=== PATIENT | male | born 1985 | race Caucasian/White ===

== ENCOUNTER 2018-12-22 16:50 | Emergency (ER) | payer OTHER ==
[2018-12-22 16:57] VITALS: BP 149/79
[2018-12-22] MEDS ORDERED: IBUPROFEN 800 MG TABLET PO STA (17:02)
--- NOTE | 2018-12-22 17:10 | ED Physician Documentation ---
History of Present Illness - Stated complaint Stated Complaint: FEVER - Chief complaint Chief Complaint: Fever - History obtained from History obtained from: Patient - History of Present Illness Timing: Yesterday (He got the YELLOW fever vaccine 5 days ago, starting yesterday he felt achy with a little bit of a dry scratchy throat, very mild dry cough. Fevers and body aches. No urinary complaints.) Review of Systems Constitutional: reports: Fever, Chills, Myalgias. denies: Fatigue Nose: denies: Rhinorrhea / runny nose, Congestion Throat: reports: Sore throat Cardiac: denies: Chest pain / pressure, Palpitations Respiratory: denies: Dyspnea, Cough PD PAST MEDICAL HISTORY - Present Medications Home Medications: Ambulatory Orders Medication Instructions Recorded Confirmed No Known Home Medications 12/22/18 12/22/18 - Allergies Allergies/Adverse Reactions: Allergies Allergy/AdvReac Type Severity Reaction Status Date / Time amoxicillin Allergy Hives Verified 12/22/18 16:58 PD ED PE NORMAL - Vitals Vital signs reviewed: Yes - General General: Alert and oriented X 3, No acute distress - HEENT HEENT: PERRL, EOMI, Pharynx benign - Neck Neck: Supple, no meningeal sign, No bony TTP - Cardiac Cardiac: RRR, No murmur - Respiratory Respiratory: No respiratory distress, Clear bilaterally - Abdomen Abdomen: Non tender - Derm Derm: No rash - Neuro Neuro: Alert and oriented X 3, Normal speech Results - Vitals Vitals: Vital Signs - 24 hr 12/22/18 12/22/18 16:54 16:57 Temperature 39.4 C H 39.5 C H Heart Rate 122 H 120 H Respiratory 18 Rate Blood Pressure 149/79 H O2 Saturation 99 Oxygen O2 Source Room air - Labs Labs: Laboratory Tests 12/22/18 12/22/18 12/22/18 17:12 17:12 17:12 WBC 12.4 H RBC 5.23 Hgb 15.2 Hct 45.2 MCV 86.4 MCH 29.1 MCHC 33.6 RDW 11.8 L Plt Count 181 MPV 10.1 Neut # (Auto) Not Reportable Lymph # (Auto) Not Reportable Vigo # (Auto) Not Reportable Eos # (Auto) Not Reportable Baso # (Auto) Not Reportable Absolute Nucleated RBC Not Reportable Total Counted 100 Band Neuts % (Manual) 1 Reactive Lymphs % (Man) 1 Abnorm Lymph % (Manual) 0 Nucleated RBC % Not Reportable Neutrophils # (Manual) 11.3 H Lymphocytes # (Manual) 0.7 L Monocytes # (Manual) 0.4 Eosinophils # (Manual) 0.0 Basophils # (Manual) 0.0 Differential Comment MANUAL DIFFERENTIAL Platelet Estimate NORMAL (130-450,000) Platelet Morphology NORMAL APPEARANCE RBC Morph Micro Appear NORMAL APPEARANCE Sodium 138 Potassium 3.8 Chloride 100 L Carbon Dioxide 26 Anion Gap 12.0 BUN 12 Creatinine 1.1 Estimated GFR (MDRD) 78 L Glucose 117 H Lactic Acid 1.3 Calcium 8.9 Total Bilirubin 2.9 H AST 16 ALT 14 Alkaline Phosphatase 60 Total Protein 7.7 Albumin 4.5 Globulin 3.2 Albumin/Globulin Ratio 1.4 Lipase 27 Influenza A (Rapid) Influenza B (Rapid) Group A Strep Rapid 12/22/18 12/22/18 17:12 17:12 WBC RBC Hgb Hct MCV MCH MCHC RDW Plt Count MPV Neut # (Auto) Lymph # (Auto) [place]igo # (Auto) Eos # (Auto) Baso # (Auto) Absolute Nucleated RBC Total Counted Band Neuts % (Manual) Reactive Lymphs % (Man) Abnorm Lymph % (Manual) Nucleated RBC % Neutrophils # (Manual) Lymphocytes # (Manual) Monocytes # (Manual) Eosinophils # (Manual) Basophils # (Manual) Differential Comment Platelet Estimate Platelet Morphology RBC Morph Micro Appear Sodium Potassium Chloride Carbon Dioxide Anion Gap BUN Creatinine Estimated GFR (MDRD) Glucose Lactic Acid Calcium Total Bilirubin AST ALT Alkaline Phosphatase Total Protein Albumin Globulin Albumin/Globulin Ratio Lipase Influenza A (Rapid) Negative Influenza B (Rapid) Negative Group A Strep Rapid Negative PD MEDICAL DECISION MAKING - ED course ED course: Yellow fever vaccine is a live vaccine and causes a viremia, presume this conversion is causing his current symptoms as the remainder of his work-up is negative. Departure - Departure Disposition: 01 Home, Self Care Clinical Impression: Yellow fever vaccine causing adverse effect in therapeutic use, Fever Condition: Stable Record reviewed to determine appropriate education?: Yes Instructions: ED Fever Unconf Cause Comments: Fever should go away in a couple of days, return if worse or if not better by Tuesday or so. Discharge Date/Time: 12/22/18 17:49
[2018-12-22 17:23] LABS: BASOPHILS % (AUTO) 0.2 %; EOSINOPHILS % (AUTO) 1.7 %; HGB - HEMOGLOBIN 15.2 g/dL (14.0-18.0); LYMPHOCYTES % (AUTO) 5.3 %; MEAN CORPUSCULAR HEMOGLOBIN 29.1 pg (27.0-31.0); MEAN CORPUSCULAR HGB CONC 33.6 g/dL (32.0-36.0); MEAN CORPUSCULAR VOLUME 86.4 fL (80.0-94.0); MEAN PLATELET VOLUME 10.1 fL (7.4-11.4); MONOCYTES % (AUTO) 6.4 %; NEUTROPHILS % (AUTO) 86.1 %; PLT - PLATELET COUNT 181 10^3/uL (130-450); RED BLOOD COUNT 5.23 10^6/uL (4.70-6.10); RED CELL DISTRIBUTION WIDTH 11.8 % (12.0-15.0); WHITE BLOOD COUNT 12.4 x10^3/uL (4.8-10.8)
[2018-12-22 17:28] LABS: ABNORMAL LYMPHS % (MANUAL) 0 %
[2018-12-22 17:36] LABS: ALBUMIN 4.5 g/dL (3.2-5.5); ALBUMIN/GLOBULIN RATIO 1.4 (1.0-2.2); BILIRUBIN,TOTAL 2.9 mg/dL (0.2-1.0); CALCIUM 8.9 mg/dL (8.5-10.3); CREATININE 1.1 mg/dL (0.6-1.2); TOTAL PROTEIN 7.7 g/dL (6.7-8.2)
[2018-12-22 17:55] LABS: BAND NEUTROPHILS % (MANUAL) 1 %; LYMPHOCYTES # (MANUAL) 0.7 10^3/uL (1.5-3.5); LYMPHOCYTES % (MANUAL) 5 %; MONOCYTES # (MANUAL) 0.4 10^3/uL (0.0-1.0)
[2018-12-22 17:56] LABS: DIFFERENTIAL COMMENT MANUAL DIFFERENTIAL; PLATELET ESTIMATE, MANUAL NORMAL (130-450,000) (NORMAL); PLATELET MORPHOLOGY NORMAL APPEARANCE (NORMAL); RBC MORPHOLOGY (MULTIPLE) NORMAL APPEARANCE (NORMAL)
== END 2018-12-22 17:49 | disposition home or self-care (01) ==
LOC: ED 16:50
DX: R50.83 Postvaccination fever (principal); T50.Z95A Adverse effect of other vaccines and biological substances, initial encounter
CPT/HCPCS: 36415; 80053; 83605; 83690; 85025; 87070; 87275; 87276; 87430; 99283; A9270

== ENCOUNTER 2018-12-23 18:01 | Emergency (ER) | payer OTHER ==
[2018-12-23 18:08] VITALS: BP 115/70
--- NOTE | 2018-12-23 18:23 | ED Physician Documentation ---
History of Present Illness - Stated complaint Stated Complaint: FEVER/COUGH - Chief complaint Chief Complaint: Fever - History obtained from History obtained from: Patient - History of Present Illness Pain level max: 3 Pain level now: 1 - Additonal information Additional information: 33-year-old male states that he received a yellow fever vaccination approximately 5 days ago. Since that time is been having body aches and fevers. Seen here yesterday with a normal blood work other than a leukocytosis. He states that he spiked a fever again today, contacted the [facility] nurse advice line who advised him to come to the emergency department for a repeat evaluation. Better with Motrin. Nothing makes it worse Review of Systems Constitutional: reports: Fever Throat: denies: Sore throat Respiratory: reports: Cough (mild, dry) GI: denies: Vomiting, Diarrhea : denies: Dysuria, Frequency, Hesitancy Skin: denies: Rash Musculoskeletal: denies: Neck pain, Back pain Neurologic: denies: Headache PD PAST MEDICAL HISTORY - Past Medical History Past Medical History: No - Past Surgical History Past Surgical History: No - Present Medications Home Medications: Ambulatory Orders Medication Instructions Recorded Confirmed No Known Home Medications 12/22/18 12/22/18 - Allergies Allergies/Adverse Reactions: Allergies Allergy/AdvReac Type Severity Reaction Status Date / Time amoxicillin Allergy Hives Verified 12/23/18 18:08 - Social History Does the pt smoke?: No Smoking Status: Never smoker Does the pt drink ETOH?: No Does the pt have substance abuse?: No - Immunizations Immunizations are current?: Yes PD ED PE NORMAL - Vitals Vital signs reviewed: Yes - General General: Alert and oriented X 3, No acute distress, Well developed/nourished - HEENT HEENT: PERRL, Ears normal, Moist mucous membranes, Pharynx benign - Neck Neck: Supple, no meningeal sign - Cardiac Cardiac: RRR, Strong equal pulses - Respiratory Respiratory: No respiratory distress, Clear bilaterally - Abdomen Abdomen: Soft, Non tender, Non distended - Derm Derm: Warm and dry, No rash - Neuro Neuro: Alert and oriented X 3 - Psych Psych: Normal mood, Normal affect Results - Vitals Vitals: Vital Signs - 24 hr 12/23/18 18:03 Temperature 35.8 C L Heart Rate 70 Respiratory 19 Rate Blood Pressure 115/70 O2 Saturation 97 Oxygen O2 Source Room air PD MEDICAL DECISION MAKING - ED course Complexity details: reviewed old records, considered differential, d/w patient ED course: Patient with side effect from the yellow fever vaccine. This will likely last for 5 to 10 days. He is very well-appearing, nontoxic. No acute findings on laboratory testing yesterday other than a leukocytosis. We will continue supportive care and follow-up with his doctor. Patient counseled regarding signs and symptoms for which I believe and urgent re-evaluation would be necessary. Patient with good understanding of and agreement to plan and is comfortable going home at this time This document was made in part using voice recognition software. While efforts are made to proofread this document, sound alike and grammatical errors may occur. Departure - Departure Disposition: 01 Home, Self Care Clinical Impression: Yellow fever vaccine causing adverse effect in therapeutic use Fever Qualifiers: Fever type: unspecified Qualified Code(s): R50.9 - Fever, unspecified Condition: Good Instructions: ED Fever Control Follow-Up: MALDONADO CHACON [Primary Care Provider] - Within 1 week Comments: You can use Motrin or Tylenol as needed for fever. The vaccination reaction will likely last 7 to 10 days. Return if you worsen
== END 2018-12-23 18:26 | disposition home or self-care (01) ==
LOC: ED 18:01
DX: R50.83 Postvaccination fever (principal); T50.B95A Adverse effect of other viral vaccines, initial encounter
CPT/HCPCS: 99281; 99282